=== PATIENT | male | born 1960 | race Caucasian/White ===

== ENCOUNTER 2018-01-25 07:28 | Day surgery (SDC) | payer OTHER ==
[~2018-01-25 07:28] MED LIST: SOD CHLORIDE 0.9% 1,000 ML IV
[2018-01-25] MEDS ORDERED: FENTAnyl 50 MCG/ML VIAL (10:39)
[2018-01-25] MEDS: CEFAZOLIN 1 GM/50 ML (PMX) 50 ML IVPB (10:53)
[2018-01-25] MEDS ORDERED: ONDANSETRON 4 MG INJ IV (11:00)
[2018-01-25] MEDS ORDERED: METOCLOPRAMIDE 10 MG INJ IV (11:00)
[2018-01-25] MEDS ORDERED: DIPHENHYDRAMINE 50 MG INJ IV (11:00)
[2018-01-25] MEDS ORDERED: MEPERIDINE 25 MG INJ IV (11:00)
[2018-01-25] MEDS ORDERED: FENTAnyl 50 MCG/ML VIAL IV ×2 (11:00)
[2018-01-25] MEDS ORDERED: HYDROmorphONE (0.2 MG/ML) 10ML SYG IV ×3 (11:00)
[2018-01-25] MEDS ORDERED: LIDOCAINE 100 MG SYRINGE (11:02)
[2018-01-25] MEDS ORDERED: CEFAZOLIN 1 GM INJ (11:02)
[2018-01-25] MEDS ORDERED: ROCURONIUM 50 MG INJ (11:02)
[2018-01-25] MEDS ORDERED: PROPOFOL 40 ML (11:02)
[2018-01-25] MEDS ORDERED: SUCCINYLCHOLINE CHLORIDE 100 MG/5 ML SYG IV (11:02)
[2018-01-25] MEDS ORDERED: SUGAMMADEX SODIUM 200 MG/2 ML VIAL IV (11:02)
[2018-01-25] MEDS: BUPIVACAINE 0.25% (MPF) 30 ML INJ (11:05)
[2018-01-25] MEDS ORDERED: HYDROCODONE/APAP (5/325) TAB PO (11:30)
== END 2018-01-25 12:44 | disposition home or self-care (01) ==
LOC: SDS 07:28
DX: D17.1 Benign lipomatous neoplasm of skin and subcutaneous tissue of trunk (principal); I10 Essential (primary) hypertension
CPT/HCPCS: 14001; 88307